=== PATIENT | female | born 1945 ===

== ENCOUNTER 2017-11-07 09:18 | Emergency (ER) | payer OTHER ==
[2017-11-07 09:18] VITALS: BMI 20.2
[2017-11-07 09:33] VITALS: O2SAT 100
[2017-11-07] MEDS ORDERED: Sodium Chloride 0.9% 1,000 ML IV ONE (09:41)
[2017-11-07 09:53] LABS: BASO % 0.5 % (0.0-2.0); EOS # 0.1 K/uL (0.0-0.7); EOS % 1.5 % (0.0-4.0); HEMOGLOBIN 13.6 g/dL (11.0-16.0); LYMPH % 38.8 % (20.0-40.0); MEAN CORPUSCULAR HEMOGLOBIN 33.5 pg (27.0-31.0); MEAN PLATELET VOLUME 10.1 fL (7.2-11.7); MONO # 0.7 K/uL (0.0-0.8); MONO % 9.2 % (0.0-10.0); NEUT # 3.8 K/uL (1.8-7.0); NRBC % 0.1 % (0.0-2.0); RBC 4.07 Mil/uL (3.80-5.20); RED CELL DISTRIBUTION WIDTH 13.3 % (11.5-14.5); WHITE BLOOD COUNT 7.6 K/uL (4.8-10.8)
[2017-11-07 10:03] LABS: ALB/GLOB RATIO 1.3 (1.0-2.1); ALBUMIN 4.3 g/dL (3.5-5.0); ALT/SGPT 24 U/L (9-52); AST/SGOT 42 U/L (14-36); BLOOD UREA NITROGEN 10 mg/dL (7-17); CALCIUM 8.7 mg/dl (8.6-10.4); GFR AFRICAN-AMERICAN > 60; GFR NON-AFRICAN AMERICAN 55; LIPASE 29 U/L (23-300)
[2017-11-07 10:05] LABS: SQUAMOUS EPITHIAL 2 /hpf (0-5); URINE BILIRUBIN NEGATIVE (NEGATIVE); URINE BLOOD 2+ (NEGATIVE); URINE CLARITY Hazy (Clear); URINE COLOR Yellow (YELLOW); URINE GLUCOSE (UA) NORMAL (Normal); URINE LEUKOCYTE ESTERASE TRACE Leu/uL (Negative); URINE PROTEIN NEGATIVE (NEGATIVE); URINE UROBILINOGEN NORMAL mg/dL (0.2-1.0)
[2017-11-07] MEDS ORDERED: Iodixanol 320 MG/ML 100 ML BOTTLE IV ONE (10:20)
--- NOTE | 2017-11-07 11:21 | C.PDOC ---
History Of Present Illness 72-year-old female presents to the emergency department with complaints of left- lower quadrant pain that radiates to left hip/groin and left leg x1 week. Patient states she has a Hx of chronic microscopic hematuria, but is unsure why. Patient admits to a Hx of diverticulitis. She denies nausea/vomiting, back pain, dizziness, chest pain, shortness of breath, dysuria, fever. No other complaints at this time. Time Seen by Provider: 11/07/17 09:20 Chief Complaint (Nursing): Abdominal Pain History Per: Patient History/Exam Limitations: no limitations Onset/Duration Of Symptoms: Days Current Symptoms Are (Timing): Still Present Severity: Moderate Location Of Pain/Discomfort: LLQ Radiation Of Pain To:: Leg Quality Of Discomfort: "Pain" Abnormal Vaginal Bleeding: No Past Medical History Reviewed: Historical Data, Nursing Documentation, Vital Signs Vital Signs: Last Vital Signs Temp 98.3 F 11/07/17 13:57 Pulse 60 11/07/17 13:57 Resp 16 11/07/17 13:57 BP 130/72 11/07/17 13:57 Pulse Ox 100 11/07/17 13:57 - Medical History PMH: Anxiety, Asthma (REPORTS DUE TO ALLERGY), CAD, Colonic Polyps, Depression, Diverticulitis, Gastritis, HTN, Hypercholesterolemia, Hypothyroidism, Migraine ( CHRONIC SINUS/ AND NASAL POLP/ CYSTS), Osteoporosis (YEARLY RECLAST THERAPY) Surgical History: Endoscopy - [facility] Procedures CLOSED ENDOSCOPIC BIOPSY OF LARGE INTESTINE (06/05/14) CYSTOSCOPY NEC (07/25/13) ESOPHAGOGASTRODUODENOSCOPY [EGD] W/CLOSED BIOPSY (06/03/14) Family History: States: No Known Family Hx - Social History Hx Tobacco Use: No Hx Alcohol Use: No Hx Substance Use: No - Immunization History Hx Tetanus Toxoid Vaccination: No Hx Influenza Vaccination: Yes (04/2017) Hx Pneumococcal Vaccination: Yes (2009) Review Of Systems Except As Marked, All Systems Reviewed And Found Negative. Constitutional: Negative for: Fever, Chills Respiratory: Negative for: Cough, Shortness of Breath Gastrointestinal: Positive for: Abdominal Pain. Negative for: Nausea, Vomiting , Diarrhea Genitourinary: Positive for: Other (left groin/hip pain). Negative for: Dysuria , Frequency, Vaginal Discharge, Vaginal Bleeding Musculoskeletal: Positive for: Leg Pain (left). Negative for: Back Pain Skin: Negative for: Rash Physical Exam - Physical Exam Appears: Well, Non-toxic, No Acute Distress Skin: Normal Color, Warm, Dry, No Rash Eye(s): bilateral: Normal Inspection Nose: Normal Oral Mucosa: Moist Neck: Normal, Normal ROM Chest: Symmetrical Cardiovascular: Rhythm Regular Respiratory: Normal Breath Sounds, No Rales, No Rhonchi, No Wheezing Gastrointestinal/Abdominal: Bowel Sounds, Soft, Tenderness (mild LLQ/L inguinal/ hip TTP, no hernias/erythema/swelling), No Guarding, No Rebound Back: Normal Inspection, No CVA Tenderness, No Vertebral Tenderness Extremity: Normal ROM, No Calf Tenderness, No Deformity, No Swelling Extremity: Left: Other (left hip pain with extension/flexion), Bilateral: Atraumatic, Normal Color And Temperature Neurological/Psych: Oriented x3, Normal Motor, Normal Sensation Gait: Steady ED Course And Treatment - Laboratory Results Result Diagrams: 11/07/17 09:47 11/07/17 09:47 O2 Sat by Pulse Oximetry: 100 (RA) Pulse Ox Interpretation: Normal - CT Scan/US CT abd/Pel Other Rad Studies (CT/US): Read By Radiologist, Radiology Report Reviewed CT/US Interpretation: Accession No. : [id number]. Patient Name / ID : CHUCK GONZALEZ / [id number]. Exam Date : 11/07/2017 10:40:58 ( Approved ). Study Comment : Sex / Age : F / [id number]. Creator : Vaishnavi Rodrigez. Dictator : Angelica Wright MD. Child Support Investigator : Flash Drier Operator : Angelica Wright MD. Approver2 : Report Date : 11/07/2017 10:52:30. My Comment : . PROCEDURE: CT Abdomen and Pelvis with contrast. HISTORY: Left lower quadrant pain pain , r/o diverticulitis. COMPARISON: 02/01/2017. TECHNIQUE: CT scan of the abdomen and pelvis was performed after administration of intravenous contrast. Oral contrast was not administered. Coronal and sagittal reformatted images were obtained. Contrast dose: 100 mL Visipaque. Radiation dose: Total exam DLP = 212.81 mGy-cm. This CT exam was performed using one or more of the following dose reduction techniques: Automated exposure control, adjustment of the mA and/or kV according to patient size, and/or use of iterative reconstruction technique. FINDINGS: LOWER THORAX: There is linear atelectasis /scarring in the left lung base. The right lung base is clear. LIVER: Normal in size with homogeneous enhancement and there is diffuse fatty infiltration. No gross lesion or ductal dilatation. GALLBLADDER AND BILE DUCTS: The gallbladder is contracted. PANCREAS: Normal in size with homogeneous enhancement. No gross lesion or ductal dilatation. SPLEEN: Normal in size and appearance. ADRENALS: No discrete nodule. KIDNEYS AND URETERS: Both kidneys are normal in size with homogeneous enhancement. No hydronephrosis. No solid mass. VASCULATURE: No aortic aneurysm. BOWEL: Evaluation of the bowel is limited in the absence of oral contrast. Allowing for this, there is mild mural thickening in the gastric wall and distal esophagus. The small bowel loops are normal in caliber. There is moderate amount of stool scattered throughout the colon. No bowel dilatation or obstruction. There is apparent mild mural thickening in the ascending colon. . Few right colonic diverticula without CT evidence for acute diverticulitis. APPENDIX: Normal appendix. PERITONEUM: No free fluid. No free air. LYMPH NODES: No enlarged lymph nodes. BLADDER: Well distended and normal in appearance. REPRODUCTIVE: Unremarkable. BONES: No acute fracture. Within normal limits for the patient' s age the. OTHER FINDINGS: There is a small sliding hiatal hernia. IMPRESSION : Evaluation of the bowel is limited in the absence of oral contrast. Allowing for this, few right colonic diverticula without CT evidence for acute diverticulitis. Apparent mild mural thickening in the ascending colon is nonspecific and could be related to underdistention however early acute colitis cannot be entirely excluded. Follow-up is advised. Small sliding hiatal hernia. Apparent mild mural thickening in the gastric wall and distal esophagus which could be related to underdistention or nonspecific inflammation. If clinically indicated, correlation with EGD may be performed. Progress Note: Blood work, UA, CT scan abd/pelvis ordered and reviewed. Patient given IV NS bolus, IV toradol. Reevaluation Time: 13:50 Reassessment Condition: Improved (On reassessment, patient is resting comfortably and states her pain has improved. CT scan (-) for acute intrabdominal findings. Patient able to ambulate normally. Rx for Naprosyn given, and patient instructed to follow up with PMD/clinic in 1-2 days. She understands she should return to ED if symptoms worsen.) Medical Decision Making Medical Decision Making: differential diagnoses considered: colitis, diverticulitis, musculoskeletal hip pain, kidney stone, pyelonephritis, uti/cysitis Disposition Counseled Patient/Family Regarding: Studies Performed, Diagnosis, Need For Followup, Rx Given - Disposition Referrals: Will Delacruz MD [Staff Provider] - Disposition: HOME/ ROUTINE Disposition Time: 13:50 Condition: STABLE Additional Instructions: FOLLOW UP WITH YOUR DOCTOR IN 1-2 DAYS USE MEDICATION NEEDED RETURN TO EMERGENCY ROOM IF SYMPTOMS WORSEN SEGUIMIENTO CON ZAFAR MDICO EN 1-2 GUPTA USE MEDICAMENTOS SEGN SEA NECESARIO REGRESE AL TAM DE EMERGENCIA SI LOS SNTOMAS EMPEORAN Prescriptions: Naproxen 375 mg PO BID PRN #20 tablet PRN Reason: pain Instructions: Hip Pain (DC) Forms: [facility] (Namibian) Print Language: KHMER - POA Present On Arrival: None - Clinical Impression Clinical Impression: Left hip pain, Microscopic hematuria - Scribe Statement The provider has reviewed the documentation as recorded by the Scribe (Mariam Larose) All medical record entries made by the Scribe were at my direction and personally dictated by me. I have reviewed the chart and agree that the record accurately reflects my personal performance of the history, physical exam, medical decision making, and the department course for this patient. I have also personally directed, reviewed, and agree with the discharge instructions and disposition.
--- NOTE | 2017-11-07 11:29 | CT ---
PROCEDURE: CT Abdomen and Pelvis with contrast HISTORY: Left lower quadrant pain pain , r/o diverticulitis COMPARISON: 02/01/2017. TECHNIQUE: CT scan of the abdomen and pelvis was performed after administration of intravenous contrast. Oral contrast was not administered. Coronal and sagittal reformatted images were obtained. Contrast dose: 100 mL Visipaque Radiation dose: Total exam DLP = 212.81 mGy-cm. This CT exam was performed using one or more of the following dose reduction techniques: Automated exposure control, adjustment of the mA and/or kV according to patient size, and/or use of iterative reconstruction technique. FINDINGS: LOWER THORAX: There is linear atelectasis/scarring in the left lung base. The right lung base is clear. LIVER: Normal in size with homogeneous enhancement and there is diffuse fatty infiltration. No gross lesion or ductal dilatation. GALLBLADDER AND BILE DUCTS: The gallbladder is contracted. PANCREAS: Normal in size with homogeneous enhancement. No gross lesion or ductal dilatation. SPLEEN: Normal in size and appearance. ADRENALS: No discrete nodule. KIDNEYS AND URETERS: Both kidneys are normal in size with homogeneous enhancement. No hydronephrosis. No solid mass. VASCULATURE: No aortic aneurysm. BOWEL: Evaluation of the bowel is limited in the absence of oral contrast. Allowing for this, there is mild mural thickening in the gastric wall and distal esophagus. The small bowel loops are normal in caliber. There is moderate amount of stool scattered throughout the colon. No bowel dilatation or obstruction. There is apparent mild mural thickening in the ascending colon. . Few right colonic diverticula without CT evidence for acute diverticulitis. APPENDIX: Normal appendix. PERITONEUM: No free fluid. No free air. LYMPH NODES: No enlarged lymph nodes. BLADDER: Well distended and normal in appearance. REPRODUCTIVE: Unremarkable. BONES: No acute fracture. Within normal limits for the patient's age the OTHER FINDINGS: There is a small sliding hiatal hernia. IMPRESSION: Evaluation of the bowel is limited in the absence of oral contrast. Allowing for this, few right colonic diverticula without CT evidence for acute diverticulitis. Apparent mild mural thickening in the ascending colon is nonspecific and could be related to underdistention however early acute colitis cannot be entirely excluded. Follow-up is advised. Small sliding hiatal hernia. Apparent mild mural thickening in the gastric wall and distal esophagus which could be related to underdistention or nonspecific inflammation. If clinically indicated, correlation with EGD may be performed.
[2017-11-07 13:58] VITALS: BP 130/72; PULSE 60; RESP 16; TEMP 98.3
== END 2017-11-07 14:26 | disposition home or self-care (01) ==
LOC: C.ER 09:18
DX: M25.552 Pain in left hip (principal); R31.29 Other microscopic hematuria
CPT/HCPCS: 74177; 80053; 81001; 83690; 85025; 96361; 96374; 99284; J1885; J7040; Q9967

== ENCOUNTER 2018-05-25 06:18 | Day surgery (SDC) | payer OTHER ==
[2018-05-23 10:24] VITALS: BMI 22.0
[2018-05-25] MEDS ORDERED: Lidocaine 2% PF (10 ml) Amp ONE (08:46)
[2018-05-25] MEDS ORDERED: Midazolam 2 MG/2 ML VIAL ONE (08:50)
[2018-05-25] MEDS ORDERED: Iodixanol 320 MG/ML 200 ML BOTTLE IV ONE (08:51)
[2018-05-25] MEDS ORDERED: Iodixanol 320 MG/ML 100 ML BOTTLE IV ONE (08:51)
--- NOTE | 2018-05-28 03:35 | CARDCATH ---
PROCEDURE DATE: 05/25/2018 PROCEDURES: 1. Left heart catheterization. 2. Coronary angiogram. CLINICAL INDICATIONS: 1. Abnormal stress test. 2. Exertional angina. 3. Hypertension. PERFORMING PHYSICIAN: Stefano Telles MD DESCRIPTION OF PROCEDURE: After informed consent, the patient was prepped and draped in the usual sterile fashion. Lidocaine 2% was given in the right groin for local anesthesia. Using micropuncture technique, a 6-Amharic sheath was introduced into right common femoral artery. A JL4, 6-Amharic diagnostic catheter was engaged into left main coronary artery. Contrast was injected and left coronary angiogram was done. Then, the catheter was exchanged to JR4, 6-Amharic diagnostic catheter. The catheter was crossed into the left ventricle across the aortic valve. LV end diastolic pressure measured. Contrast was injected and the LV angiogram was done. The catheter was pulled back across the aortic valve. Gradient across the aortic valve was measured. Then, the same catheter engaged into the right coronary artery. Contrast injected and the right coronary angiogram was done. The patient tolerated the procedure well. Postprocedure, the Mynx closure device deployed in the right groin with excellent hemostasis. Radiological supervision and radiological interpretation of the coronary imaging was done. FINDINGS: 1. Left main coronary artery is patent. 2. Proximal LAD is patent; however, middle LAD has 50% concentric stenosis. 3. Distal LAD and diagonal branches are patent. Left circumflex and obtuse marginal branches are patent. 4. Right coronary artery is a dominant and patent. 5. LV ejection fractions are approximately 60%. EDP is 12. No gradient across the aortic valve. IMPRESSION: 1. Mid left anterior descending has 50% nonobstructive stenosis. 2. Normal left ventricular systolic function. RECOMMENDATION: Recommend medical management for nonobstructive coronary artery disease. Stefano Telles MD
[2018-05-28 09:40] VITALS: RESP 15; O2SAT 100
== END 2018-05-25 13:00 | disposition home or self-care (01) ==
LOC: C.CATHLAB 06:18
PROVIDERS: ATTEND Internal Medicine Cardiovascular Disease
DX: R07.89 Other chest pain (principal); I10 Essential (primary) hypertension; I20.8 Other forms of angina pectoris
CPT/HCPCS: J1644; J2250; J3010; Q9966; Q9967

== ENCOUNTER 2018-12-11 10:38 | Outpatient (CLI) | payer OTHER | END 2018-12-11 10:39 | disposition home or self-care (01) | LOC: C.MAMMO 10:38 | DX: Z12.31 Encounter for screening mammogram for malignant neoplasm of breast (principal) ==